=== PATIENT | male | born 1955 | race Caucasian/White ===

== ENCOUNTER 2016-04-23 11:25 | Emergency (ER) | payer MEDICARE ==
--- NOTE | 2016-04-23 12:07 | Emergency Department Report ---
Chief Complaint: Skin/Abscess/Foreign Body Stated Complaint: POSS SPIDER BITE Time Seen by Provider: 04/23/16 12:04 - HPI History of Present Illness: PT states he noticed a spider bite to his R buttock yesterday. - ROS Review of Systems: pt denies f/c/n/v PT also increased thirst or urinary frequency - Exam Physical Exam: Pt looks well, non toxic. steady gait. PT will need room for eval of possible spider bite/ abscess MSE screening note: Focused history and physical exam performed. Due to findings the following was ordered: bbg due to pt's hx of DM ED Disposition for MSE Condition: Stable
--- NOTE | 2016-04-23 15:36 | Emergency Department Report ---
ED General Adult HPI - General Chief complaint: Skin/Abscess/Foreign Body Stated complaint: POSS SPIDER BITE Time Seen by Provider: 04/23/16 12:04 Source: patient Mode of arrival: Ambulatory Limitations: No Limitations - History of Present Illness Initial comments: PT c/o spider bite to R buttock. PT states he knows something crawled up his pants and bit him. PT did not see a spider but he feels like bites on his right buttocks. -: Gradual, days(s) Location: buttocks Quality: other (itchy/ irritated ) Consistency: constant - Related Data Previous Rx's Medication Instructions Recorded Last Taken Type Valacyclovir HCl [Valtrex] 1,000 mg PO TID #21 tablet 04/23/16 Unknown Rx Allergies Allergy/AdvReac Type Severity Reaction Status Date / Time No Known Allergies Allergy Unverified 04/23/16 12:12 ED Review of Systems ROS: Stated complaint: POSS SPIDER BITE Other details as noted in HPI Constitutional: denies: chills, fever, malaise Endocrine: other (pt denies checking his bg today ). denies: increased hunger, increased thirst, increased urine Gastrointestinal: denies: vomiting ED Past Medical Hx - Past Medical History Hx Hypertension: Yes Hx Diabetes: Yes Additional medical history: chicken pox as child - Surgical History Additional Surgical History: slpeenectomy - Social History Smoking Status: Current Every Day Smoker Substance Use Type: None - Medications Home Medications: Home Medications Medication Instructions Recorded Confirmed Last Taken Type Valacyclovir HCl [Valtrex] 1,000 mg PO TID #21 tablet 04/23/16 Unknown Rx ED Physical Exam - General Limitations: No Limitations General appearance: alert, in no apparent distress - Head Head exam: Present: atraumatic, normocephalic - Eye Eye exam: Present: normal appearance. Absent: PERRL - ENT ENT exam: Present: normal exam - Neck Neck exam: Present: normal inspection, full ROM - Respiratory Respiratory exam: Absent: respiratory distress, wheezes - Cardiovascular Cardiovascular Exam: Present: regular rate, normal rhythm, normal heart sounds - Rectal Rectal exam: Present: deferred - Extremities Exam Extremities exam: Present: normal inspection, full ROM - Back Exam Back exam: Present: normal inspection, full ROM - Neurological Exam Neurological exam: Present: alert, oriented X3 - Skin Skin exam: Present: warm, dry, intact, vesicles (4 vesicles to R buttock) ED Course Vital Signs 04/23/16 12:08 Temperature 97.9 F Pulse Rate 69 Respiratory 18 Rate Blood Pressure 165/93 O2 Sat by Pulse 99 Oximetry - Reevaluation(s) Reevaluation #1: 04/23/16 15:37 PT denies hx of HSV. currently vesicles are only on one side of the body and pt reports hx of varicella as child. pt aware of dx and plan of care. PT aware that his bp is elevated and that he will need to follow up with his PCP for recheck. PT denies any cp, sob, rahman - Pulse Oximetry Interpretation Digit-Finger Initial Pulse Oximetry Readin Actions Taken: none ED Medical Decision Making - Differential Diagnosis abscess, local reaction to insect bite, shingles, hsv Critical care attestation.: If time is entered above; I have spent that time in minutes in the direct care of this critically ill patient, excluding procedure time. ED Disposition Clinical Impression: Shingles rash Qualifiers: Herpes zoster complications: without complications Qualified Code(s): B02.9 - Zoster without complications Disposition: DISCHARGED TO HOME OR SELFCARE Is pt being admited?: No Does the pt Need Aspirin: No Condition: Stable Instructions: Herpes Zoster (ED) Prescriptions: Valacyclovir HCl [Valtrex] 1,000 mg PO TID #21 tablet Referrals: PRIMARY CARE, [Primary Care Provider] - 3-5 Days Time of Disposition: 15:38
[2016-04-23 16:22] VITALS: BP 158/90
== END 2016-04-23 17:28 | disposition home or self-care (01) ==
LOC: ED 11:25
DX: B02.9 Zoster without complications (principal); I10 Essential (primary) hypertension; E11.9 Type 2 diabetes mellitus without complications; F17.200 Nicotine dependence, unspecified, uncomplicated; W57.XXXA Bitten or stung by nonvenomous insect and other nonvenomous arthropods, initial encounter; Y93.9 Activity, unspecified; Y92.9 Unspecified place or not applicable; Y99.9 Unspecified external cause status
CPT/HCPCS: 82962; 99282